=== PATIENT | male | born 1990 | race Caucasian/White ===

== ENCOUNTER 2021-02-13 13:55 | Emergency (ER) | payer SELFPAY ==
[2021-02-13 14:21] VITALS: BP 130/83; PULSE 67; RESP 16; TEMP 36.8; O2SAT 97; BMI 26.2
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
[2021-02-13 16:12] VITALS: BP 130/83; PULSE 67; RESP 16; TEMP 36.8; O2SAT 97
== END 2021-02-13 16:12 | disposition home or self-care (01) ==
PROVIDERS: Emergency Provider Physician Assistant
DX: S16.1XXA Strain of muscle, fascia and tendon at neck level, initial encounter (principal); V89.2XXA Person injured in unspecified motor-vehicle accident, traffic, initial encounter
CPT/HCPCS: 70450; 72125; 99282